=== PATIENT | female | born 1995 | race Caucasian/White ===

== ENCOUNTER 2016-12-06 13:15 | Emergency (ER) | payer OTHER ==
[~2016-12-06] VITALS: Ht 180.3 cm; Wt 57.7 kg
[2016-12-06 13:24] VITALS: BP 125/77; PULSE 105; RESP 18; O2SAT 100
--- NOTE | 2016-12-06 13:49 | ED.REPORT ---
HPI-Abd Pain F Under 40 Date of Service December 06, 2016 ED Provider: Dr. Wiggins Pt is a 21 year old female with a hx of C.Diff 3 years ago presenting to the ED complaining of mid abdominal pain onset 4 days ago. Associated symptoms include constipation and then diarrhea, nausea. Denies fever, dysuria, vomiting, urinary frequency or urgency. Since the initial c.diff 3 years ago, she has had intermittent recurrent symptoms. She reports that this feels similar to her c.diff episode. A few weeks ago she states that she had food poisoning, with vomiting. Right after that she was put on antibiotics for strep throat until 4 days ago. Nursing Notes Stated Complaint: ABDOMINAL PAIN Chief Complaint: Female Abdominal Pain Nursing Notes Reviewed: Yes Allergies: Coded Allergies: No Known Allergies (Unverified , 12/06/16) Scheduled Vancomycin (Vancomycin) 125 Mg Capsule 125 MG PO QID Scheduled PRN Dicyclomine (Bentyl) 10 Mg Capsule 10 MG PO BID PRN PRN For Pain Ondansetron ODT (Zofran ODT) 4 Mg Tablet 4 MG PO Q4H PRN PRN For Nausea General Time Seen by MD: 13:49 Chief Complaint Abdominal pain Hx Obtained From: Patient Arrived By: Walk-in Sudden in Onset?: No Onset Occurred: 4 days ago Context of Onset: Recent antibiotic use Symptom Duration: Since onset Progression since Onset: Constant Location: : Diffuse Quality: Painful Severity: Current: Moderate Severity: Maximum: Moderate Recent Healthcare: No recent doctor visit, No recent hospitalization Similar Sx Previous: Yes Past Medical History Past Medical History C. diff 3 years ago with intermittent recurrent episodes Past Surgical History denies Smoking History Unknown if Ever Smoker Ambulatory Status Independent Review of Systems Constitutional: Denies: Fever GI: Reports: Abdominal pain, Constipation, Diarrhea, Nausea, Denies: Vomiting Female: Denies: Dysuria, Urinary frequency, Urinary urgency Complete sys rev & neg: except as marked. Physical Exam Initial Vital Signs Vital Signs (First) Date Time Temp Pulse Resp B/P Pulse Ox O2 Delivery O2 Flow Rate FiO2 12/06/16 13:24 36.8 105 18 125/77 100 Room Air Initial VS: Reviewed Head / Eyes: Atraumatic, Normocephalic, PERRL ENT: Mucous membranes moist, Conjunctiva normal, No scleral icterus Extremities: Vascular intact, Neuro intact, No swelling, No tenderness Skin: Warm, Dry, No cyanosis Neurologic: Alert, Oriented, Nonfocal Psychiatric: Mood/affect normal, Behavior normal, Normal thought content General/Constitutional: Awake, Alert Distress / Hydration: Positive: Dehydration mild, Distress mild Thin Respiratory / Chest: Breath sounds NL, Breath sounds = bilat, No respiratory distress, No rales, No rhonchi, No wheezing Cardiovascular: Heart rate NL, Regular rhythm, Heart sounds NL, Peripheral circulation NL Abdomen: Soft, Non-tender Interpretation & Diagnostics Interpretation & Diagnostics: C. diff positive Lab Results Interpretation Result Diagram: 12/06/16 1427 12/06/16 1427 Test 12/06/16 14:21 12/06/16 14:27 Urine Color Straw (YELLOW) Urine Appearance Clear (CLEAR,HAZY) Urine pH 6.0 (5.0-8.0) Urine Specific [place] 1.010 (1.003-1.035) Urine Protein Negativemg/dL (NEG,TRACE) Urine Glucose (UA) Negativemg/dL (NEGATIVE) Urine Ketones Negativemg/dL (NEGATIVE) Urine Occult Blood Trace (NEGATIVE) Urine Nitrite Negative (NEGATIVE) Urine Bilirubin Negative (NEGATIVE) Urine Urobilinogen Normalmg/dL (NORMAL) Urine Leukocyte Esterase Negative (NEGATIVE) Urine RBC 0-2/hpf (0-2) Urine WBC 0-5/hpf (0-5) Urine Epithelial Cells Occasional/hpf (NONE-MOD) Urine Crystals None seen (NONE SEEN) Urine Bacteria Moderate/hpf (NONE-FEW) Urine Hyaline Casts None/lpf (NONE) Urine Granular Casts None seen (NONE SEEN) Urine Waxy Casts None seen (NONE SEEN) Urine Red Blood Cell Casts None seen (NONE SEEN) Urine White Blood Cell Casts None seen (NONE SEEN) Urine Mucus None seen (None Seen) Urine Trichomonas None seen (NONE SEEN) Urine Yeast None (NONE SEEN) Urinalysis Comment None Urine Culture Reflexed Indicated White Blood Count 12.2th/mm3 (3.8-10.1) Red Blood Count 4.37mil/mm3 (3.90-5.20) Hemoglobin 12.0g/dL (12.0-15.6) Hematocrit 37.8% (35.0-46.0) Mean Corpuscular Volume 86.5fL (81-100) Mean Corpuscular Hemoglobin 27.5pg (27.0-35.0) Mean Corpuscular Hemoglobin Concent 31.7% (32.0-37.0) Red Cell Distribution Width 13.5% (12.3-15.4) Platelet Count 302bil/L (150-400) Neutrophils (%) (Auto) 78.5% (40-74) Lymphocytes (%) (Auto) 13.2% (14-46) Monocytes (%) (Auto) 6.5% (4-12) Eosinophils (%) (Auto) 1.4% (0-5) Basophils (%) (Auto) 0.2% (0-3) Sodium Level 138mEq/L (134-144) Potassium Level 3.8mEq/L (3.5-5.2) Chloride Level 101mEq/L (97-108) Carbon Dioxide Level 22mmol/L (18-29) Blood Urea Nitrogen 6mg/dL (6-20) Creatinine 0.52mg/dL (0.57-1.00) Estimat Glomerular Filtration Rate 213mL/min (>59) Glucose Level 89mg/dL (60-99) Calcium Level 9.6mg/dL (8.5-10.1) Magnesium Level 1.8mg/dL (1.6-2.6) Total Bilirubin 0.5mg/dL (0.0-1.2) Aspartate Amino Transf (AST/SGOT) 15U/L (0-50) Alanine Aminotransferase (ALT/SGPT) 13U/L (0-32) Alkaline Phosphatase 62U/L (25-150) Total Protein 7.6g/dL (6.4-8.4) Albumin 4.4g/dL (3.4-5.0) Hold Castro Top Tube Received (Received) Re-Eval/Medical Decision Med Decision/Clinical Course Med Decision/Clinical Course: Recurrent C. difficile. oral vanco given. return precautions given Re-Evaluation/Progress : Time of Eval: 16:02 Patient Status: Condition improved Re-Evaluation/Progress Note: Discussed positive c.diff results and plan for discharge. Pt understands and agrees. Counseled Regarding: Diagnosis, Lab results, Need for follow-up, When/why to return to ED Discharge & Departure Primary Impression: Clostridium difficile colitis Disposition: Home Discharge Condition All VS Reviewed: Yes Condition: Improved Additional Instructions: Take vancomycin to treat your colitis. Use Bentyl and Zofran as needed for discomfort. Follow-up with your regular doctor once you get home. Go to the nearest ER if you feel that you are getting worse. Referrals: [facility] (PCP) [facility] Raul Attestation Portions of this note were transcribed by Audelia Mcfadden. I, Dr. Wiggins personally performed the history, physical exam and medical decision-making; I reviewed and confirmed the accuracy of the information in the transcribed note. Signed by: Raul Nicholas, 12/06/2016 at 1625. copies to: [facility] Terry Wiggins DO December 06, 2016 13:49 AUDELIA MCFADDEN December 06, 2016 14:18
[2016-12-06] MEDS ORDERED: 0.9% Sodium Chloride 1,000 ML IV ONE (14:20)
[2016-12-06] MEDS ORDERED: Ondansetron 2 mg/mL 2 mL Inj ONE (14:25)
[2016-12-06 14:37] LABS: BASOPHILS % (AUTO) 0.2 % (0-3); EOSINOPHILS % (AUTO) 1.4 % (0-5); MONOCYTES % (AUTO) 6.5 % (4-12); Mean Corpuscular Hemoglobin 27.5 pg (27.0-35.0); Mean Corpuscular Volume 86.5 fL (81-100); NEUTROPHILS % (AUTO) 78.5 % (40-74); Platelet Count 302 bil/L (150-400)
[2016-12-06 14:46] LABS: APPEARANCE,URINE CLEAR (CLEAR,HAZY); COLOR,URINE STRAW (YELLOW); OCCULT BLOOD,URINE TRACE (NEGATIVE); UROBILINOGEN,URINE NORMAL (NORMAL)
[2016-12-06 15:03] LABS: Magnesium 1.8 mg/dL (1.6-2.6)
[2016-12-06] MEDS ORDERED: Vancomycin 125 mg Oral Capsule PO ONE (16:05)
[2016-12-06] MEDS ORDERED: VANC125C10 PO (16:15)
[2016-12-06] MEDS ORDERED: DICY10CA56 PO (16:15)
[2016-12-06] MEDS ORDERED: ONDA4TAB9 PO (16:15)
== END 2016-12-06 16:23 | disposition home or self-care (01) ==
LOC: SED 13:15
DX: A04.7 Enterocolitis due to Clostridium difficile (principal); Z86.19 Personal history of other infectious and parasitic diseases
CPT/HCPCS: 36415; 80053; 81000; 83735; 85025; 87086; 87493; 96361; 96374; 99285; J2405; J7030